=== PATIENT | male | born 1945 | race Caucasian/White ===

== ENCOUNTER → 2017-01-01 | Day surgery (SDC) | payer OTHER | END | disposition home or self-care (01) | LOC: SDC 07:35 | DX: H26.8 Other specified cataract (principal); I10 Essential (primary) hypertension; E78.00 Pure hypercholesterolemia, unspecified; F17.210 Nicotine dependence, cigarettes, uncomplicated; Z79.82 Long term (current) use of aspirin; Z79.899 Other long term (current) drug therapy | CPT/HCPCS: C1780; J1100; J1580 ==